=== PATIENT | male | born 1990 | race Caucasian/White ===

== ENCOUNTER 2017-12-17 03:31 | Emergency (ER) | payer OTHER, SELFPAY ==
[2017-12-17 03:52] VITALS: BP 108/69; PULSE 48; RESP 18; TEMP 36.2; O2SAT 100; BMI 21.2
--- NOTE | 2017-12-17 04:19 | ED_ITS ---
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 Patient exam notes decreased range of motion and muscle spasm, but no CVA tenderness, or vertebral point tenderness. There are no symptoms of cauda equina such as saddle anesthesia, and decreased reflexes, decreased sensation or strength. And some generalized abdominal discomfort. The patient was diagnosed with a UTI about 2 weeks ago was placed on 1 week of Macrobid. He states that that dysuria, frequency and urgency have improved but the patient still is urinating essentially nonstop. Was unable to lay flat this evening because his back was hurting. Denies any neurologic findings such as numbness, tingling or weakness. He denies fever or chills, nor nausea or Onset (ago): day(s) Duration: constant Severity: mild Reports denies other symptoms Related Data Allergies Allergy/AdvReac Type Severity Reaction Status Date / Time No Known Drug Allergies Allergy Verified 12/17/17 04:17 Review of Systems Review of Systems All systems reviewed & are unremarkable except as noted in HPI and below Constitutional Denies chills, Denies fever(s), Denies lethargy and Denies weakness Eyes Denies change in vision, Denies eye discharge, Denies irritation and Denies loss of vision ENT Ears, Nose, Mouth, and Throat: Denies change in voice, Denies neck pain and Denies sore throat Cardiovascular Denies chest pain, Denies irregular heart rhythm, Denies lightheadedness, Denies palpitations, Denies dyspnea, Denies dyspnea on exertion and Denies orthopnea Respiratory Denies cough, Denies dyspnea, Denies dyspnea on exertion and Denies wheezing Gastrointestinal Gastrointestinal: Reports abdominal pain, Denies change in bowel habits, Denies diarrhea, Denies nausea and Denies vomiting Genitourinary Denies hematuria, Denies flank pain, Denies urinary incontinence and Reports urinary urgency Musculoskeletal Reports back pain and Denies neck pain Integumentary/Breasts Denies pruritus, Denies erythema, Denies rash and Denies wounds Neurologic Denies confusion, Denies loss of vision and Denies weakness Psychiatric Denies anxiety, Denies confusion, Denies depression, Denies homicidal ideation and Denies suicidal ideation Endocrine Denies palpitations Hematologic/Lymphatic Denies easy bruising Allergic/Immunologic Denies wheezing PFSH Social History Smoking Status: Never smoker Exam Initial Vital Signs Initial Vital Signs: Vital Signs Temperature 97.2 F L 12/17/17 03:52 Pulse Rate 48 L 12/17/17 03:52 Respiratory Rate 18 12/17/17 03:52 Blood Pressure 108/69 12/17/17 03:52 Pulse Oximetry 100 12/17/17 03:52 Const General: cooperative and well developed Nutritional Appearance: well nourished Orientation: alert, awake, oriented x3 and not confused HENMT Head: normocephalic and atraumatic Ears: external ears normal and TM's normal bilaterally Nose: external nose normal and No nasal discharge Face and sinus: sinuses nontender, face symmetric, no sinus tenderness and No dry mucous membranes Mouth: oral mucosae normal and moist mucous membranes Teeth and gingiva: dentition normal Throat: tonsils normal and uvula midline Eyes General: appearance normal, both eyes and all related structures Eyelids: eyelids normal Conjunctivae: conjunctivae normal Sclera: sclerae normal Pupils: PERRL EOM: EOM intact bilaterally Neck Neck: normal visual inspection, trachea midline, No lymphadenopathy, No midline deformity and No JVD Lymphatic: No lymphedema Chest Chest: normal inspection of the chest Resp Effort & Inspection: normal respiratory effort, able to speak in complete sentences, no respiratory distress and no use of accessory muscles Auscultation: clear to auscultation bilaterally, no rales, no rhonchi and no wheezes Cardio Rate: regular rate Rhythm: regular rhythm Heart Sounds: no click, no gallops, no murmurs and no rubs Pulses: normal peripheral pulses GI Inspection: non-distended Palpation: soft, no hepatosplenomegaly, No guarding, No pulsatile mass and No tender Auscultation: normal bowel sounds Back/Spine/Pelvis Back: No CVA tenderness Cervical Spine: cervical ROM normal and No pain with cervical ROM Thoracic/Lumbar Spine: thoracic and lumbar spine normal to inspection Skin General: no rashes or lesions noted, No jaundice and No petechiae Neuro General: alert, oriented x3, gait normal and no focal motor deficits Speech: speech normal Extrem General: full ROM, no clubbing, cyanosis or edema, no pedal edema and no calf tenderness Psych Appearance: well kempt Mental Status: mental status grossly normal Attitude: cooperative Thought Content: normal and suicidality Judgment: judgment good Course Orders Ordered: ED Orders 12/17/17 04:02 Urinalysis and Microscopic Stat 12/17/17 04:17 Basic Metabolic Panel Stat Complete Blood Count AUTO DIFF Stat Ketones (Beta-Hydroxybutyrate) Stat Vital Signs - 8 hr 12/17/17 03:52 Temperature 97.2 F L Pulse Rate 48 L Respiratory Rate 18 Blood Pressure 108/69 Pulse Oximetry 100
[2017-12-17 04:20] LABS: Bacteria Urine None Seen; RBC Urine None Seen (0-5/HPF); WBC Urine None Seen (0-5/HPF)
[2017-12-17 04:21] LABS: Appearance Urine UA CLEAR; Bilirubin Urine UA NEGATIVE (NEGATIVE); Color Urine UA YELLOW; Glucose Urine UA NEGATIVE (Normal); Ketones Urine UA NEGATIVE (NEGATIVE); Leukocyte Esterase Urine UA NEGATIVE (NEGATIVE); Nitrite Urine UA Negative (Negative); Occult Blood Urine UA NEGATIVE (Negative); Protein Urine UA NEGATIVE (Negative); Urobilinogen Urine UA 0.2 E.U./dL (0.2); pH Urine UA 5.5 (4.5-8.0)
[2017-12-17 04:34] LABS: Culture Indicated Urine Cult Not Indicated
[2017-12-17] MEDS: KETOROLAC 15 MG/ML VIAL IV (04:37)
[2017-12-17] MEDS: SODIUM CHLORIDE 0.9% 1,000 ML 1000 ML IV (04:37)
[2017-12-17] MEDS: PANTOPRAZOLE 40 MG VIAL IV (04:37)
--- NOTE | 2017-12-17 04:48 | PC.NURSE ---
Pt reports recent UTI 2 weeks ago finished taking abx and still reports increased urinary frequency.
[2017-12-17 04:59] LABS: BUN Creatinine Ratio 21.3 (6-22); Blood Urea Nitrogen 17 mg/dL (9-20); Calcium 9.5 mg/dL (8.4-10.2); Carbon Dioxide 27 mmol/L (22-32); Chloride 103 mmol/L (98-107); Estimated Glomerular Filt Rate > 60.0 mL/min (>60); Glucose 97 mg/dL (70-100); HEMOLYSIS < 15 (0-50); Potassium 4.1 mmol/L (3.4-5.1); Sodium 142 mmol/L (137-145)
[2017-12-17 05:01] LABS: Add Manual Diff / Slide Review NO; Basophils Percent Auto 0.5 % (0-2); Eosinophils Percent Auto 1.1 % (2-4); Hematocrit 41.1 % (41-53); Hemoglobin 14.1 g/dL (13.5-17.5); Lymphocytes Percent Auto 33.4 % (25-40); Mean Corpuscular HGB Conc 34.2 % (30-36); Mean Corpuscular Hemoglobin 29.9 PG (26-34); Mean Corpuscular Volume 87.5 fL (80-100); Monocytes Percent Auto 7.2 % (3-14); Neutrophils Absolute Auto 3900 /uL (3000-5900); Neutrophils Percent Auto 57.8 % (50-75); Platelet Count 160 X10^3/uL (150-400); Red Cell Distribution Width 12.4 % (11.6-14.8); White Blood Cell Count 6.7 X10^3/uL (4.5-11.0)
[2017-12-17 05:04] LABS: Ketones (Beta-Hydroxybutyrate) 0.32 mmol/L (<0.27)
[2017-12-17 05:39] VITALS: BP 101/66; PULSE 54; RESP 14; TEMP 37.1; O2SAT 98
== END 2017-12-17 05:41 | disposition home or self-care (01) ==
PROVIDERS: Emergency Provider Emergency Medicine
DX: R35.0 Frequency of micturition (principal); R35.8 Other polyuria
CPT/HCPCS: 36591; 80048; 81001; 82009; 85025; 96361; 96374; 96375; 99283; 99284; C9113; J1885

== ENCOUNTER 2017-12-19 10:40 | Emergency (ER) | payer OTHER, SELFPAY ==
[2017-12-19 10:46] VITALS: BP 107/64; PULSE 86; RESP 18; O2SAT 100
[2017-12-19 10:49] VITALS: TEMP 36.6
--- NOTE | 2017-12-19 11:33 | DI.CT.S_ITS ---
PROCEDURE: CT ABDOMEN PELVIS W CON INDICATIONS: Recent UTI 2 weeks ago. Continued right flank pain TECHNIQUE: After the administration of intravenous contrast, 5 mm thick sections acquired from the diaphragms to the symphysis. 5 mm thick coronal and sagittal reformats were performed. For radiation dose reduction, the following was used: automated exposure control, adjustment of mA and/or kV according to patient size. COMPARISON: None. FINDINGS: Image quality: Excellent. ABDOMEN: Lung bases: Lung bases are clear. Heart size is normal. Solid organs: Liver is normal in size and enhancement. Mild, diffuse fatty infiltration of liver noted. Gallbladder is within normal limits. Biliary system is non-dilated. Pancreas enhances normally. Spleen is normal in size and enhancement. No adrenal nodules. Kidneys are normal in size and enhancement, without hydronephrosis. Peritoneum and bowel: Stomach, small bowel, and colon loops are normal in caliber and wall thickness. No free fluid or air. The appendix is not definitely visualized, however, no free fluid or inflammatory changes are noted adjacent to the cecum. Nodes and vessels: No retroperitoneal or mesenteric adenopathy. Aorta and inferior vena cava are normal in caliber. Miscellaneous: No ventral hernias. PELVIS: Genitourinary: Bladder wall thickness is normal. Miscellaneous: No inguinal hernias or adenopathy. Bones: No suspicious bony lesions. No vertebral body compression fractures. IMPRESSION: 1. No definite acute disease process. 2. The appendix is not definitely visualized. No secondary signs of appendicitis, or earliest manifestation of appendicitis cannot be completely excluded. If patient's symptoms persist, or worsen, then repeat imaging is warranted. Dictated by: Padmini Duron MD, PhD on 12/19/2017 at 12:13 Approved by: Padmini Duron MD, PhD on 12/19/2017 at 12:18
[2017-12-19 11:42] LABS: INR 1.2 (0.9-1.3); Prothrombin Time 13.6 SECONDS (10.1-12.7)
[2017-12-19 11:43] LABS: Add Manual Diff / Slide Review NO; Basophils Percent Auto 0.5 % (0-2); Hematocrit 41.7 % (41-53); Hemoglobin 14.6 g/dL (13.5-17.5); Lymphocytes Percent Auto 33.4 % (25-40); Mean Corpuscular Hemoglobin 30.4 PG (26-34); Monocytes Percent Auto 8.1 % (3-14); Neutrophils Absolute Auto 3100 /uL (3000-5900); Platelet Count 156 X10^3/uL (150-400); Red Blood Cell Count 4.79 X10^6/uL (4.5-5.9); Red Cell Distribution Width 12.3 % (11.6-14.8); White Blood Cell Count 5.4 X10^3/uL (4.5-11.0)
[2017-12-19 11:45] LABS: PTT Partial Thromboplastin Tim 31 SECONDS (26.4-36.2)
[2017-12-19 11:49] LABS: Alanine Aminotransferase 32 IU/L (21-72); Albumin Globulin Ratio 1.6 (1.0-2.8); Alkaline Phosphatase 48 U/L (38-126); Aspartate Aminotransferase 25 IU/L (17-59); BUN Creatinine Ratio 15.6 (6-22); Bilirubin Total 1.2 mg/dL (0.2-1.3); Blood Urea Nitrogen 14 mg/dL (9-20); Calcium 9.7 mg/dL (8.4-10.2); Carbon Dioxide 31 mmol/L (22-32); Chloride 103 mmol/L (98-107); Estimated Glomerular Filt Rate > 60.0 mL/min (>60); Globulin 3.1 g/dL (1.7-4.1); Glucose 90 mg/dL (70-100); HEMOLYSIS < 15 (0-50); Lipase 32 U/L (23-300); Potassium 4.2 mmol/L (3.4-5.1); Sodium 143 mmol/L (137-145); Total Protein 8.1 g/dL (6.3-8.2)
[2017-12-19 11:50] LABS: C-Reactive Protein Quant < 0.5 mg/dL (<1.0)
[2017-12-19 11:57] LABS: Erythrocyte Sedimentation Rate 1 MM/HR (0-15)
--- NOTE | 2017-12-19 13:00 | ED_ITS ---
HPI - Abdominal Pain General Chief Complaint: Abdominal Pain Stated Complaint: abdominal pain History of Present Illness HPI narrative: HPI 27 yo male presents for evaluation poorly characterized bilateral flank pain and left upper quadrant discomfort that is been present for several days. Recent history notable for a UTI is treated with antibiotics. No prior intrabdominal surgeries. No diarrhea, no fevers, chills. Family history inflammatory bowel disease. Patient sent from [facility] for a CT abdomen/pelvis due to concern for appendicitis. M/S/F/SocHx notable for: please see HPI; remainder reviewed with patient and in chart. ROS: Negative constitutional, eye, cardiovascular, pulmonary, GI, , MSK, skin , neurologic, psychiatric, endocrine unless noted in the HPI. Exam Gen: Pleasant, non-toxic appearing, resting comfortably. HEENT: NC, AT, PEERL, EOMI. Resp: Clear to auscultation bilaterally, normal work of breathing, no accessory muscle usage. Card: Regular rate and rhythm with no murmurs, rubs, or gallops, extremities warm and well perfused. GI: Non-tender to palpation throughout all quadrants, no focal tenderness at McBurney's point, negative Tilley's sign, non-distended, no rebound or guarding. : No suprapubic tenderness to palpation. MSK: No visible deformities, strength and tone without visually appreciable deficit. Skin: Normal color with no visible lesions. Neuro: AO x 3, no facial asymmetry, vision and hearing WNL. Psych: Mood and affect appropriate. Labs / Imaging: WBC 5.4, HB 14.6, sodium 143, potassium 4.2, total bilirubin 1.2, AST 25, ALT 32 , alkaline phosphatase 48, ESR 1, CRP <0.5, lipase 32 UA - negative nitrate, negative leukocyte esterase, no bacteria, no WBCs. CT Abd/Pelvis: 1. No definite acute disease process. 2. The appendix is not definitely visualized. No secondary signs of appendicitis , or earliest manifestation of appendicitis cannot be completely excluded. If patient's symptoms persist, or worsen, then repeat imaging is warranted. MDM Previous chart, nursing note, labs, imaging, and vitals reviewed. A: 27 yo male presents for evaluation poorly characterized bilateral flank pain and left upper quadrant discomfort that is been present for several days. DDx: acute appendicitis, lobar nephronia, perinephric abscess, Crohn's disease, ulcerative colitis, UTI, pyelonephritis, ureterolithiasis, muscle strain. Evaluation: strongly doubt acute intra-abdominal or genitourinary process given the relatively benign abdominal exam, unremarkable CT abdomen and pelvis, negative urinalysis, and normal CBC, CMP, ESR, CRP, and lipase. Muscle strain remains on the differential. Also considered was a super diaphragmatic process, however given the absence cough, shortness breath, chest pain, dyspnea, or further identifiable risk factors as well as mild tenderness palpation over the abdomen further evaluation is not presently warranted. Patient was discharged with PCP follow-up recommended. Impression: abdominal pain (please reference below for remainder of encounter information) Related Data Home Medications Medication Instructions Recorded Confirmed No Known Home Medications 12/19/17 12/19/17 Allergies Allergy/AdvReac Type Severity Reaction Status Date / Time clarithromycin [From Biaxin] Allergy Verified 12/19/17 10:48 [facility] Social History Smoking Status: Never smoker Exam Initial Vital Signs Initial Vital Signs: Vital Signs Pulse Rate 86 12/19/17 10:46 Respiratory Rate 18 12/19/17 10:46 Blood Pressure 107/64 12/19/17 10:46 Pulse Oximetry 100 12/19/17 10:46 Course Orders Ordered: ED Orders 12/19/17 11:05 C-Reactive Protein Quant Stat Complete Blood Count AUTO DIFF Stat Comprehensive Metabolic Panel Stat Erythrocyte Sedimentation Rate Stat Lipase Stat Partial Thromboplastin Time Stat Prothrombin Time INR Stat 12/19/17 11:33 CT abdomen pelvis w con Stat Vital Signs - 8 hr 12/19/17 10:46 12/19/17 10:49 Temperature 97.8 F Pulse Rate 86 Respiratory Rate 18 Blood Pressure 107/64 Pulse Oximetry 100 MDM - Abdominal Pain Lab Data Result diagrams: 12/19/17 11:05 12/19/17 11:05 Lab Results 12/19/17 12/19/17 12/19/17 Range/Units 11:05 11:05 11:05 WBC 5.4 (4.5-11.0) X10^3/uL RBC 4.79 (4.5-5.9) X10^6/uL Hgb 14.6 (13.5-17.5) g/dL Hct 41.7 (41-53) % MCV 87.0 (80-100) fL MCH 30.4 (26-34) PG MCHC 35.0 (30-36) % RDW 12.3 (11.6-14.8) % Plt Count 156 (150-400) X10^3/uL Neut % (Auto) 57.0 (50-75) % Lymph % (Auto) 33.4 (25-40) % [place] % (Auto) 8.1 (3-14) % Eos % (Auto) 1.0 L (2-4) % Baso % (Auto) 0.5 (0-2) % Neut # (Auto) 3100 (7275-9802) /uL ESR 1 (0-15) MM/HR PT 13.6 H (10.1-12.7) SECONDS INR 1.2 (0.9-1.3) APTT 31 (26.4-36.2) SECONDS Sodium 143 (137-145) mmol/L Potassium 4.2 (3.4-5.1) mmol/L Chloride 103 (98-107) mmol/L Carbon Dioxide 31 (22-32) mmol/L BUN 14 (9-20) mg/dL Creatinine 0.90 (0.66-1.25) mg/dL Estimated GFR > 60.0 (>60) mL/min BUN/Creatinine Ratio 15.6 (6-22) Glucose 90 (70-100) mg/dL Calcium 9.7 (8.4-10.2) mg/dL Total Bilirubin 1.2 (0.2-1.3) mg/dL AST 25 (17-59) IU/L ALT 32 (21-72) IU/L Alkaline Phosphatase 48 (38-126) U/L C-Reactive Protein < 0.5 (<1.0) mg/dL Total Protein 8.1 (6.3-8.2) g/dL Albumin 5.0 (3.5-5.0) g/dL Globulin 3.1 (1.7-4.1) g/dL Albumin/Globulin Ratio 1.6 (1.0-2.8) Lipase 32 (23-300) U/L Point of care testing: Urine Dip Bedside Urine Glucose Negative Bedside Urine Bilirubin - Negative Bedside Urine Ketone - Negative Urine Specific [place] 1.030 Bedside Urine Occult Blood - Negative Bedside Urine pH 6.0 Bedside Urine Protein - Negative Bedside Urine Urobilinogen - Negative Bedside Urine Nitrite - Negative Bedside Urine Leukocytes - Negative Esterase Discharge Plan Departure Prescriptions: No Action No Known Home Medications RF: 0
[2017-12-19 13:22] VITALS: BP 102/58; PULSE 57; RESP 14; O2SAT 100
== END 2017-12-19 13:54 | disposition home or self-care (01) ==
PROVIDERS: Emergency Provider Emergency Medicine
DX: R10.9 Unspecified abdominal pain (principal)
CPT/HCPCS: 36591; 74177; 80053; 81003; 83690; 85025; 85610; 85651; 85730; 86140; 99282; 99284

== ENCOUNTER → 2020-12-12 12:10 | Outpatient (CLI) | payer OTHER, SELFPAY ==
--- NOTE | 2020-12-12 | DI.MRI.S_ITS ---
PROCEDURE: MR WRIST LT WO CON INDICATIONS: Other enthesopathies, not elsewhere classified TECHNIQUE: Noncontrast coronal proton density fast spin echo and T2 fast spin echo with fat saturation; coronal 3-D gradient echo, axial T1 spin echo and T2 fast spin echo with fat saturation, sagittal T1 spin echo through the wrist. COMPARISON: None. FINDINGS: Image quality: Excellent. Bones and cartilage: The carpal bones are normally aligned. No bone marrow contusions or fractures. No evidence for avascular necrosis. Type 2 lunate without significant degenerative changes at the hamatolunate articulation. Neutral ulnar variance. Carpal ligaments: The scapholunate and lunotriquetral ligaments appear intact. Triangular fibrocartilage complex: The triangular fibrocartilage appears intact. Tendons and soft tissues: Adjacent to the skin marker at the dorsal aspect of the distal forearm in the subcutaneous tissues, there is an elongated somewhat tubular T2-hyperintense lesion measuring approximately 3.5 x 1.2 x 0.6 cm with mild adjacent edema. The lesion appears to be continuous with vascular structures proximally and distally, and a venous varix or lymphovascular malformation is suspected. There is mildly increased signal within the pronator quadratus muscle, which can be a normal variant or associated with anterior interosseous neuropathy. The carpal tunnel structures appear normal, including the median nerve. The ulnar nerve appears normal within Guyon's canal. All six extensor tendon compartments demonstrate normal morphology, without pathologic tendon sheath fluid. No soft tissue ganglion cysts. IMPRESSION: 1. Subcutaneous tubular T2-hyperintense lesion at the dorsal aspect of the distal forearm measuring approximately 3.5 x 1.2 x 0.6 cm with mild adjacent soft tissue edema appears to be continuous with subcutaneous veins and is suspected to represent a venous varix or lymphovascular malformation. Recommend correlation with clinical findings. Targeted ultrasound could be obtained to evaluate for vascular flow. 2. Mildly increased signal in the pronator quadratus muscle is nonspecific and can be a normal variant, but can also be seen in the setting of anterior interosseous neuropathy. 3. No significant internal derangement of the wrist. Dictated by: Rainer Pineda M.D. on 12/12/2020 at 15:06 Approved by: Rainer Pineda M.D. on 12/12/2020 at 15:22
== END ==
PROVIDERS: Referring Provider Orthopaedic Surgery; Visit Provider Orthopaedic Surgery
DX: R22.30 Localized swelling, mass and lump, unspecified upper limb (principal); M77.8 Other enthesopathies, not elsewhere classified
CPT/HCPCS: 73221